=== PATIENT | male | born 1940 | race Asian ===

== ENCOUNTER → 2017-09-22 | Outpatient (CLI) | payer MEDICARE ==
[~2017-09-22] MED LIST: CARV6.2551 OR; DIGO0.1262 OR; MULTIV; SPIR25TA89 OR
[2017-09-22 11:49] LABS: Basophils # (auto) 0 uL; Basophils % (auto) 0.8 % (0.0-2.0); Eosinophils # (auto) 0.3 uL; Eosinophils % (auto) 5.2 % (0.0-7.0); Hematocrit 48.9 % (41.0-53.0); Hemoglobin 16.4 g/dL (13.5-17.5); Lymphocytes # (auto) 1.3 uL; Mean Corpuscular Hemoglobin 31.8 pg (28.0-32.0); Mean Corpuscular Hgb Conc. 33.6 g/dL (32.0-36.0); Mean Corpuscular Volume 94.9 fL (80.0-100.0); Monocytes # (auto) 0.4 uL; Monocytes % (auto) 7.5 % (0.0-12.0); Neutrophils # (auto) 3.8 uL; Neutrophils % (auto) 64.5 % (37.0-80.0); Nucleated Red Blood Cells % 0.1 %; Platelet Count (auto) 187 10^3/uL (140-450); Red Blood Cells 5.16 10^6/uL (4.5-5.90); Red Cell Distribution Width 13.3 % (11.8-14.3); White Blood Cell 5.8 10^3/uL (4.4-10.8)
[2017-09-22 12:00] LABS: Urine Bacteria NONE SEEN /hpf (None Seen); Urine Blood Negative /uL (Negative); Urine Mucus FEW (None Seen); Urine Specific Gravity 1.022 (1.001-1.035); Urine WBC <1 /hpf (0 - 3)
[2017-09-22 13:11] LABS: CRP High Sensitivity 0.11 mg/dL (< 0.3)
[2017-09-22 13:40] LABS: Free T4 (Free Thyroxine) 1.13 ng/dL (0.89-1.76); Prostate Specific Antigen 0.18 ng/mL (0.0-4.0); T3 Total 1.08 ng/mL (0.60-1.81)
[2017-09-22 13:41] LABS: Free T3 3.04 pg/mL (2.3-4.2)
== END | disposition home or self-care (01) ==
LOC: LAB 11:22
PROVIDERS: ATTEND Internal Medicine
DX: I25.10 Atherosclerotic heart disease of native coronary artery without angina pectoris (principal); E78.5 Hyperlipidemia, unspecified; I10 Essential (primary) hypertension; R79.89 Other specified abnormal findings of blood chemistry; E55.9 Vitamin D deficiency, unspecified; N40.0 Benign prostatic hyperplasia without lower urinary tract symptoms; R33.9 Retention of urine, unspecified; R39.15 Urgency of urination
CPT/HCPCS: 36415; 80061; 81001; 82306; 82607; 83036; 84153; 84403; 84439; 84443; 84480; 84481; 85025; 86141

== ENCOUNTER → 2018-04-19 | Outpatient (CLI) | payer MEDICARE ==
[~2018-04-19] MED LIST changes: +ASPI81TA27 PO; +CARV12.544 PO; +ENAL2.5T PO; +SPIR25TA8 OR; -SPIR25TA89 OR
== END | disposition home or self-care (01) ==
LOC: LAB 08:30
PROVIDERS: ATTEND Internal Medicine
DX: N39.41 Urge incontinence (principal)
CPT/HCPCS: 84153

== ENCOUNTER 2018-04-23 07:50 | Day surgery (SDC) | payer MEDICARE ==
[2018-04-20 12:34] LABS: Hematocrit 45.8 % (41.0-53.0); Hemoglobin 15.3 g/dL (13.5-17.5); Mean Corpuscular Hemoglobin 32.1 pg (28.0-32.0); Mean Corpuscular Hgb Conc. 33.3 g/dL (32.0-36.0); Mean Corpuscular Volume 96.4 fL (80.0-100.0); Platelet Count (auto) 170 10^3/uL (140-450); Red Blood Cells 4.75 10^6/uL (4.5-5.90); Red Cell Distribution Width 13.1 % (11.8-14.3); White Blood Cell 6.6 10^3/uL (4.4-10.8)
[2018-04-20 12:44] LABS: Band Neutrophils % (manual) 0; Basophils % (manual) 0 (0.0-2.0); Blast Cells 0; Metamyelocytes % 0; Myelocytes % 0; Promyelocytes % 0; Reactive Lymphocytes 0
[2018-04-20 12:56] LABS: INR 0.97 (0.9-1.15); Partial Thromboplastin Time 27.4 sec (23.78-33.04); Prothrombin Time 10.4 sec (9.27-12.13)
[2018-04-20 13:12] LABS: Eosinophils % (manual) 15 (0-7); Lymphocytes % (manual) 15 (10.0-50.0); Monocytes % (manual) 8 (0-12)
[~2018-04-23] VITALS: Ht 162.6 cm; Wt 63.5 kg
[~2018-04-23 07:50] MED LIST changes: -CARV6.2551 OR; -DIGO0.1262 OR; -MULTIV; -SPIR25TA8 OR
[2018-04-23] MEDS ORDERED: FLUMAZENIL 0.1 MG/ML INJ 10ML MDV IV ONE (08:13)
[2018-04-23] MEDS ORDERED: SODIUM CHLORIDE LOCK 10 ML ONE (08:13)
[2018-04-23] MEDS ORDERED: diphenhdrAMINE 50mg/ml (500mg/10ml VIAL) ONE (08:13)
[2018-04-23] MEDS ORDERED: NALOXONE HCL 0.4 MG/ML VIAL ONE (08:13)
[2018-04-23] MEDS: fentaNYL CITRATE 100 MCG/2 ML VL ONE ×3 (08:54→09:02)
[2018-04-23] MEDS: MIDAZOLAM HCL 5 MG/ML-1ML VIAL ONE ×3 (08:54→09:02)
[2018-04-23 09:51] VITALS: BP 134/74
== END 2018-04-23 10:09 | disposition home or self-care (01) ==
LOC: GI 07:50
PROVIDERS: ATTEND Internal Medicine Gastroenterology
DX: Z12.11 Encounter for screening for malignant neoplasm of colon (principal); D12.3 Benign neoplasm of transverse colon; D12.5 Benign neoplasm of sigmoid colon; D12.7 Benign neoplasm of rectosigmoid junction; K57.30 Diverticulosis of large intestine without perforation or abscess without bleeding; K64.8 Other hemorrhoids; K64.4 Residual hemorrhoidal skin tags; F32.9 Major depressive disorder, single episode, unspecified; Z79.82 Long term (current) use of aspirin; Z79.899 Other long term (current) drug therapy; Z98.890 Other specified postprocedural states; Z85.46 Personal history of malignant neoplasm of prostate
CPT/HCPCS: 36415; 45380; 45385; 85007; 85027; 85610; 85730; J1200; J2250; J3010; J7030; G0500

== ENCOUNTER → 2018-05-27 | Outpatient (CLI) | payer MEDICARE | END | disposition home or self-care (01) | LOC: XYW 09:35 | PROVIDERS: ATTEND Internal Medicine | DX: I07.1 Rheumatic tricuspid insufficiency (principal); I50.9 Heart failure, unspecified | CPT/HCPCS: 93306 ==

== ENCOUNTER → 2018-05-27 | Outpatient (CLI) | payer MEDICARE ==
[2018-05-27 09:22] LABS: Urine Bacteria NONE SEEN /hpf (None Seen); Urine Blood Negative /uL (Negative); Urine Mucus FEW (None Seen); Urine Specific Gravity 1.021 (1.001-1.035); Urine WBC <1 /hpf (0 - 3)
[2018-05-27 09:26] LABS: Chloride 104 mmol/L (98-107); Potassium 4.3 mmol/L (3.5-5.1); Sodium 137 mmol/L (136-145)
[2018-05-27 09:30] LABS: Basophils # (auto) 0 uL; Basophils % (auto) 0.6 % (0.0-2.0); Eosinophils # (auto) 0.5 uL; Eosinophils % (auto) 9.5 % (0.0-7.0); Hematocrit 46.4 % (41.0-53.0); Hemoglobin 15.9 g/dL (13.5-17.5); Mean Corpuscular Hemoglobin 32.6 pg (28.0-32.0); Mean Corpuscular Hgb Conc. 34.3 g/dL (32.0-36.0); Mean Corpuscular Volume 95.2 fL (80.0-100.0); Monocytes # (auto) 0.4 uL; Neutrophils # (auto) 2.8 uL; Neutrophils % (auto) 59.9 % (37.0-80.0); Nucleated Red Blood Cells % 0.2 %; Platelet Count (auto) 182 10^3/uL (140-450); Red Blood Cells 4.87 10^6/uL (4.5-5.90); Red Cell Distribution Width 13.1 % (11.8-14.3); White Blood Cell 4.8 10^3/uL (4.4-10.8)
[2018-05-27 09:36] LABS: Alanine Aminotransferase 31 U/L (16-61); Albumin 3.6 g/dL (3.4-5.0); Alkaline Phosphatase 60 U/L (45-117); Anion Gap 7 (5-15); Aspartate Aminotransferase 18 U/L (15-37); BUN/Creatinine Ratio 19.4; Bilirubin, Total 0.8 mg/dL (0.2-1.0); Blood Urea Nitrogen 20 mg/dL (7-18); CRP High Sensitivity < 0.02 mg/dL (< 0.3); Calcium 9.1 mg/dL (8.5-10.1); Carbon Dioxide 26 mmol/L (21-32); Cholesterol 174 mg/dL (< 200); GFR African American 90 mL/min; GFR Non-African American 74 mL/min; Glucose 128 mg/dL (74-106); HDL Cholesterol 68 mg/dL (40-59); LDL Cholesterol 103 mg/dL (< 100); Total Protein 7.3 g/dL (6.4-8.2); Triglycerides 64 mg/dL (< 150)
[2018-05-27 09:42] LABS: Free T4 (Free Thyroxine) 1.23 ng/dL (0.89-1.76)
[2018-05-27 09:44] LABS: T3 Total 1.02 ng/mL (0.60-1.81)
== END | disposition home or self-care (01) ==
LOC: LAB 08:42
PROVIDERS: ATTEND Internal Medicine
DX: E78.5 Hyperlipidemia, unspecified (principal); I42.9 Cardiomyopathy, unspecified; Z79.82 Long term (current) use of aspirin; Z79.899 Other long term (current) drug therapy
CPT/HCPCS: 36415; 80053; 80061; 81001; 82306; 82607; 83036; 84403; 84439; 84443; 84480; 85025; 86141

== ENCOUNTER → 2020-11-27 | Outpatient (CLI) | payer MEDICARE ==
[~2020-11-27] MED LIST changes: +ASPI-543 PO; -ASPI81TA27 PO; -ENAL2.5T PO; +ENAL2.5T7 PO
[2020-11-27 08:29] LABS: Basophils # (auto) 0 10 ^3/uL (0-0.2); Basophils % (auto) 0.8 % (0.0-2.0); Eosinophils # (auto) 0.3 10 ^3/uL (0-0.8); Eosinophils % (auto) 5.6 % (0.0-7.0); Hemoglobin 14.6 g/dL (13.5-17.5); Lymphocytes % (auto) 19.7 % (10.0-50.0); Mean Corpuscular Hemoglobin 32.3 pg (28.0-32.0); Mean Corpuscular Hgb Conc. 33.9 g/dL (32.0-36.0); Mean Corpuscular Volume 95.5 fL (80.0-100.0); Monocytes # (auto) 0.5 10 ^3/uL (0-1.3); Monocytes % (auto) 9.6 % (0.0-12.0); Neutrophils # (auto) 3.4 10 ^3/uL (1.6-8.6); Neutrophils % (auto) 64.3 % (37.0-80.0); Red Cell Distribution Width 13.4 % (11.8-14.3); White Blood Cell 5.2 10^3/uL (4.4-10.8)
[2020-11-27 08:56] LABS: Albumin 3.7 g/dL (3.4-5.0); Calcium 8.9 mg/dL (8.5-10.1); Potassium 4.1 mmol/L (3.5-5.1)
[2020-11-27 09:02] LABS: BUN/Creatinine Ratio 25.8; Bilirubin, Total 0.8 mg/dL (0.2-1.0); Total Protein 7.4 g/dL (6.4-8.2)
== END | disposition home or self-care (01) ==
LOC: LAB 08:03
PROVIDERS: ATTEND Internal Medicine
DX: I10 Essential (primary) hypertension (principal); E78.5 Hyperlipidemia, unspecified
CPT/HCPCS: 36415; 80053; 80061; 84403; 84443; 85025

== ENCOUNTER → 2020-11-28 | Outpatient (CLI) | payer MEDICARE | END | disposition home or self-care (01) | LOC: XYW 13:46 | PROVIDERS: ATTEND Internal Medicine | DX: I08.2 Rheumatic disorders of both aortic and tricuspid valves (principal); I48.91 Unspecified atrial fibrillation; I42.9 Cardiomyopathy, unspecified | CPT/HCPCS: 93306 ==

== ENCOUNTER → 2021-11-28 | Outpatient (CLI) | payer MEDICARE | END | disposition home or self-care (01) | LOC: XYW 09:38 | PROVIDERS: ATTEND Internal Medicine | DX: I08.8 Other rheumatic multiple valve diseases (principal); Q21.1 Atrial septal defect | CPT/HCPCS: 93306 ==

== ENCOUNTER → 2022-08-25 | Outpatient (CLI) | payer MEDICARE ==
[2022-08-25 09:20] LABS: Basophils # (auto) 0.1 10 ^3/uL (0-0.2); Basophils % (auto) 1.3 % (0.0-2.0); Eosinophils # (auto) 0.4 10 ^3/uL (0-0.8); Eosinophils % (auto) 7.1 % (0.0-7.0); Hematocrit 43.1 % (41.0-53.0); Hemoglobin 15.1 g/dL (13.5-17.5); Lymphocytes # (auto) 1.1 10 ^3/uL (0.4-5.4); Lymphocytes % (auto) 22.1 % (10.0-50.0); Mean Corpuscular Hemoglobin 32.7 pg (28.0-32.0); Mean Corpuscular Hgb Conc. 35.1 g/dL (32.0-36.0); Mean Corpuscular Volume 93.2 fL (80.0-100.0); Monocytes # (auto) 0.4 10 ^3/uL (0-1.3); Neutrophils # (auto) 3.2 10 ^3/uL (1.6-8.6); Neutrophils % (auto) 61.5 % (37.0-80.0); Nucleated Red Blood Cells % 0.4 %; Red Blood Cells 4.62 10^6/uL (4.5-5.90); Red Cell Distribution Width 12.6 % (11.8-14.3); White Blood Cell 5.1 10^3/uL (4.4-10.8)
[2022-08-25 09:30] LABS: Urine Bacteria NONE SEEN /hpf (None Seen); Urine Blood Negative /uL (Negative); Urine Mucus FEW (None Seen); Urine Specific Gravity 1.023 (1.001-1.035); Urine WBC <1 /hpf (0 - 3)
[2022-08-25 09:52] LABS: Albumin 3.4 g/dL (3.4-5.0); Calcium 9.5 mg/dL (8.5-10.1); Potassium 4.5 mmol/L (3.5-5.1)
[2022-08-25 10:01] LABS: BUN/Creatinine Ratio 31.3 (10.0-20.0); Bilirubin, Total 0.8 mg/dL (0.2-1.0)
[2022-08-25 10:36] LABS: Free T4 (Free Thyroxine) 1.05 ng/dL (0.89-1.76)
[2022-08-25 10:37] LABS: Prostate Specific Antigen 0.35 ng/mL (0.0-4.0)
== END | disposition home or self-care (01) ==
LOC: LAB 08:52
PROVIDERS: ATTEND Internal Medicine
DX: I12.9 Hypertensive chronic kidney disease with stage 1 through stage 4 chronic kidney disease, or unspecified chronic kidney disease (principal); Z29.9 Encounter for prophylactic measures, unspecified; Z79.899 Other long term (current) drug therapy; Z85.46 Personal history of malignant neoplasm of prostate
CPT/HCPCS: 36415; 80053; 80061; 81001; 83036; 84153; 84439; 84443; 85025

== ENCOUNTER → 2022-10-06 | Outpatient (CLI) | payer MEDICARE ==
[2022-10-06 14:16] LABS: Basophils # (auto) 0 10 ^3/uL (0-0.2); Basophils % (auto) 0.6 % (0.0-2.0); Eosinophils # (auto) 0.5 10 ^3/uL (0-0.8); Eosinophils % (auto) 7.5 % (0.0-7.0); Hematocrit 41.3 % (41.0-53.0); Hemoglobin 14.1 g/dL (13.5-17.5); Lymphocytes # (auto) 1.5 10 ^3/uL (0.4-5.4); Lymphocytes % (auto) 23.6 % (10.0-50.0); Mean Corpuscular Hemoglobin 32.6 pg (28.0-32.0); Mean Corpuscular Hgb Conc. 34.3 g/dL (32.0-36.0); Mean Corpuscular Volume 95.2 fL (80.0-100.0); Monocytes # (auto) 0.6 10 ^3/uL (0-1.3); Monocytes % (auto) 8.8 % (0.0-12.0); Neutrophils # (auto) 3.8 10 ^3/uL (1.6-8.6); Neutrophils % (auto) 59.5 % (37.0-80.0); Red Blood Cells 4.33 10^6/uL (4.5-5.90); Red Cell Distribution Width 12.9 % (11.8-14.3); White Blood Cell 6.4 10^3/uL (4.4-10.8)
== END | disposition home or self-care (01) ==
LOC: LAB 13:59
PROVIDERS: ATTEND Internal Medicine
DX: Z01.812 Encounter for preprocedural laboratory examination (principal); I10 Essential (primary) hypertension
CPT/HCPCS: 36415; 85025

== ENCOUNTER → 2023-01-28 | Outpatient (CLI) | payer MEDICARE ==
[~2023-01-28] VITALS: Ht 160 cm; Wt 59.0 kg
[~2023-01-28] MED LIST changes: +ADENOSINE 50 MG in GIVE UN-DILUTED 0 ML IV ONE; +ENAL1TAB42 PO; -ENAL2.5T7 PO
== END | disposition home or self-care (01) ==
LOC: XYW 07:12
PROVIDERS: ATTEND Student in an Organized Health Care Education/Training Program
DX: Z01.810 Encounter for preprocedural cardiovascular examination (principal); I48.0 Paroxysmal atrial fibrillation; I42.8 Other cardiomyopathies; Q21.10 Atrial septal defect, unspecified
CPT/HCPCS: 78452; 93017; A9500; J0153

== ENCOUNTER 2023-04-13 06:12 | Day surgery (SDC) | payer MEDICAID, MEDICARE ==
[2023-04-08 11:18] LABS: Urine WBC None Seen /hpf (0 - 3)
[2023-04-08 11:29] LABS: Basophils # (auto) 0 10 ^3/uL (0-0.2); Basophils % (auto) 0.8 % (0.0-2.0); Eosinophils # (auto) 0.3 10 ^3/uL (0-0.8); Eosinophils % (auto) 5.3 % (0.0-7.0); Hematocrit 42.3 % (41.0-53.0); Hemoglobin 14.1 g/dL (13.5-17.5); Lymphocytes # (auto) 1.1 10 ^3/uL (0.4-5.4); Lymphocytes % (auto) 17.7 % (10.0-50.0); Mean Corpuscular Hemoglobin 31.8 pg (28.0-32.0); Mean Corpuscular Hgb Conc. 33.2 g/dL (32.0-36.0); Mean Corpuscular Volume 95.8 fL (80.0-100.0); Monocytes # (auto) 0.6 10 ^3/uL (0-1.3); Monocytes % (auto) 9.5 % (0.0-12.0); Neutrophils # (auto) 4.2 10 ^3/uL (1.6-8.6); Neutrophils % (auto) 66.7 % (37.0-80.0); Red Blood Cells 4.42 10^6/uL (4.5-5.90); Red Cell Distribution Width 13.9 % (11.8-14.3); White Blood Cell 6.3 10^3/uL (4.4-10.8)
[2023-04-08 11:37] LABS: Urine Bacteria NONE SEEN /hpf (None Seen); Urine Blood Negative /uL (Negative); Urine Clarity Clear (Clear); Urine Color Yellow (Yellow); Urine Protein, UAD Negative (Negative); Urine Specific Gravity 1.022 (1.001-1.035); Urine Urobilinogen Normal (Negative); Urine pH 6.5 (5.0-8.0)
[2023-04-08 11:46] LABS: INR 1.04 (0.9-1.15); Partial Thromboplastin Time 28.3 SEC (24.5-34.5); Prothrombin Time 10.9 sec (9.3-11.8)
[2023-04-08 11:53] LABS: Alanine Aminotransferase 26 U/L (7-40); Albumin 4.3 g/dL (3.2-4.8); Alkaline Phosphatase 53 U/L (46-116); Anion Gap 5 (5-15); Aspartate Aminotransferase 20 U/L (13-40); BUN/Creatinine Ratio 24.4 (10.0-20.0); Bilirubin, Total 0.7 mg/dL (0.2-1.0); Blood Urea Nitrogen 21 mg/dL (9-23); Carbon Dioxide 30 mmol/L (20-30); Chloride 104 mmol/L (98-107); Glucose 102 mg/dL (74-106); Potassium 4.2 mmol/L (3.5-5.1); Sodium 139 mmol/L (136-145); Total Protein 6.9 g/dL (5.7-8.2)
[2023-04-08 12:25] LABS: Calcium 9.5 mg/dL (8.7-10.4)
[~2023-04-13] VITALS: Ht 160 cm; Wt 59.0 kg
[~2023-04-13 06:12] MED LIST changes: -ADENOSINE 50 MG in GIVE UN-DILUTED 0 ML IV ONE; -ASPI-543 PO; +SPIR25TA8 PO
[2023-04-13] MEDS ORDERED: DexAMETHasone SOD PHOS 10MG/1ML VIAL INJ IV ONE (06:13)
[2023-04-13] MEDS ORDERED: ceFAZolin 2 GM/D5W100ml 100 ML IV ONE (06:37)
[2023-04-13] MEDS ORDERED: LIDOCAINE W/ EPINEPHRINE 1% 20ML VIAL ONE (06:41)
[2023-04-13] MEDS ORDERED: BUPIVACAINE 0.5% P/F INJ 10 ML VIAL ONE (06:41)
[2023-04-13] MEDS ORDERED: ROCURONIUM 10MG/ML 10ML VIAL IV ONE (06:53)
[2023-04-13] MEDS ORDERED: SUCCINYLCHOLINE CHLORIDE 20 MG/ML 10ML VIAL IV ONE (06:53)
[2023-04-13] MEDS ORDERED: MEPERIDINE HCL (25 MG/ML) 1ML VIAL ONE (07:00)
[2023-04-13] MEDS ORDERED: fentaNYL CITRATE 100 MCG/2 ML VL ONE (07:01)
[2023-04-13] MEDS ORDERED: ONDANSETRON HCL 4 MG/2 ML VIAL ONE (07:01)
[2023-04-13] MEDS ORDERED: PROPOFOL 10 MG/ML 20 ML IV ONE (07:01)
[2023-04-13] MEDS ORDERED: MIDAZOLAM HCL 2MG/2ML 2ml VIAL (1mg/ml) ONE (07:01)
[2023-04-13] MEDS ORDERED: ACE3T PO (08:05)
[2023-04-13 08:09] VITALS: PULSE 59; RESP 11; O2SAT 100
[2023-04-13] MEDS ORDERED: MORPHINE SULFATE INJ 2 MG/ml SYRG IV PRN (08:15)
[2023-04-13] MEDS ORDERED: HYDROmorphone HCL 2 MG/ML VL/or syr IV PRN ×2 (08:15)
[2023-04-13] MEDS ORDERED: METOCLOPRAMIDE HCL 5MG/ml INJ 2ml VIAL IV PRN (08:15)
[2023-04-13 09:54] VITALS: BP 135/78; PULSE 61; RESP 15; O2SAT 98
== END 2023-04-13 10:10 | disposition home or self-care (01) ==
LOC: SUR 06:12
PROVIDERS: ATTEND Surgery
DX: K40.91 Unilateral inguinal hernia, without obstruction or gangrene, recurrent (principal)
CPT/HCPCS: 36415; 49520; 80053; 81001; 85025; 85610; 85730; 86850; 86900; 86901; 88302; C1781; J0330; J1100; J2175; J2250; J2405; J2704; J3010; J3490

== ENCOUNTER 2023-07-17 10:34 | Emergency (ER) | payer MEDICARE ==
[~2023-07-17] VITALS: Ht 160 cm; Wt 58.3 kg
[2023-07-17 11:10] LABS: Basophils # (auto) 0 10 ^3/uL (0-0.2); Basophils % (auto) 0.5 % (0.0-2.0); Eosinophils # (auto) 0.1 10 ^3/uL (0-0.8); Hematocrit 43.4 % (41.0-53.0); Hemoglobin 14.3 g/dL (13.5-17.5); Lymphocytes # (auto) 0.7 10 ^3/uL (0.4-5.4); Lymphocytes % (auto) 10.7 % (10.0-50.0); Mean Corpuscular Hemoglobin 31.8 pg (28.0-32.0); Mean Corpuscular Hgb Conc. 33.1 g/dL (32.0-36.0); Mean Corpuscular Volume 96.1 fL (80.0-100.0); Monocytes # (auto) 0.3 10 ^3/uL (0-1.3); Monocytes % (auto) 5.4 % (0.0-12.0); Neutrophils # (auto) 5.2 10 ^3/uL (1.6-8.6); Neutrophils % (auto) 82.4 % (37.0-80.0); Red Blood Cells 4.51 10^6/uL (4.5-5.90); Red Cell Distribution Width 13.5 % (11.8-14.3); White Blood Cell 6.3 10^3/uL (4.4-10.8)
[2023-07-17 11:23] VITALS: PULSE 60; RESP 17; O2SAT 100
[2023-07-17 11:26] LABS: Alanine Aminotransferase 26 U/L (7-40); Albumin 4.1 g/dL (3.2-4.8); Alkaline Phosphatase 52 U/L (46-116); Anion Gap 5 (5-15); Aspartate Aminotransferase 24 U/L (13-40); BUN/Creatinine Ratio 14.1 (10.0-20.0); Blood Urea Nitrogen 11 mg/dL (9-23); Calcium 9.5 mg/dL (8.7-10.4); Carbon Dioxide 24 mmol/L (20-30); Chloride 105 mmol/L (98-107); Glucose 165 mg/dL (74-106); Magnesium 2.3 mg/dL (1.6-2.6); Potassium 4.1 mmol/L (3.5-5.1); Sodium 134 mmol/L (136-145)
[2023-07-17 11:27] LABS: Bilirubin, Total 0.8 mg/dL (0.2-1.0)
[2023-07-17 12:28] LABS: COVID19 ANTIGEN SOFIA FIA NEGATIVE (NEGATIVE)
[2023-07-17] MEDS ORDERED: ALBU108A5 IN (16:01)
[2023-07-17] MEDS ORDERED: PRED20TA2 PO (16:01)
[2023-07-17] MEDS: DexAMETHasone SOD PHOS 10MG/1ML VIAL INJ IV ONE (16:20)
[2023-07-17] MEDS: ALBUTEROL SULF 2.5 MG/0.5ML(0.5%) NEB SOLN HHN ONE (16:33)
[2023-07-17] MEDS: IPRATROPIUM BROM 0.5 MG/2.5ML INH SOL HHN ONE (16:33)
[2023-07-17 17:12] VITALS: BP 128/69; PULSE 74; RESP 17; O2SAT 99
== END 2023-07-17 17:19 | disposition home or self-care (01) ==
LOC: ER 10:34
DX: R06.00 Dyspnea, unspecified (principal); I11.0 Hypertensive heart disease with heart failure; I50.9 Heart failure, unspecified; I48.91 Unspecified atrial fibrillation; Z85.46 Personal history of malignant neoplasm of prostate; Z98.890 Other specified postprocedural states; Z20.822 Contact with and (suspected) exposure to COVID-19
CPT/HCPCS: 36415; 71045; 71275; 80053; 83605; 83735; 83880; 84484; 85025; 85379; 87040; 87426; 94640; 96374; 99285; J1100; J7644; Q9967

== ENCOUNTER → 2023-11-09 | Outpatient (CLI) | payer MEDICARE ==
[~2023-11-09] MED LIST changes: +ALBU108A5 IN; +PRED20TA2 PO
== END | disposition home or self-care (01) ==
LOC: XYW 10:52
PROVIDERS: ATTEND Internal Medicine
DX: I08.1 Rheumatic disorders of both mitral and tricuspid valves (principal); I48.0 Paroxysmal atrial fibrillation
CPT/HCPCS: 93306

== ENCOUNTER → 2024-05-24 | Outpatient (CLI) | payer MEDICARE ==
[~2024-05-24] VITALS: Ht 160 cm; Wt 57.6 kg
[~2024-05-24] MED LIST changes: +REGADENOSON 0.4 MG/5 ML SYRG IV ONE
--- NOTE | 2024-05-25 07:51 | DVHSR ---
APPROVED REPORT Exam: Nuclear Stress Test Indication: Cardiac clearance BMI: 0 Medical History Medical History: EF 50%, A-fiB, HTN Stress Test Details Stress Test: Pharmacologic stress testing performed using 0.4 mg of regadenoson per 5 mL given IV ov er 10 seconds. HR Resting HR: 55 bpmMax Heart Rate (APMHR): 137 bpm Max HR Achieved: 74 bpmTarget HR (85% APMHR): 116 bpm % of APMHR: 54 Recovery HR: 64 bpm BP Resting BP: 122/65 mmHg Recovery BP: 117/53 mmHg ECG Resting ECG: Sinus Bradycardia Clinical Reason for Termination: Completed protocol Stress ECG Conclusion Review of the myocardial perfusion images demonstrated a moderate-sized area of moderate intensity ra diotracer uptake in the inferior wall that appears to be more intense in the resting images compared to stress images. This likely represents diaphragmatic attenuation artifact. Otherwise, there is ho mogeneous radiotracer uptake throughout the rest of the left ventricular myocardium. Left ventricula r volumes are normal. Ejection fraction is normal and is estimated at 59%. There is no significant transient ischemic dilatation. No gated images are available to assess for wall motion abnormalities . Impression: 1. Fixed defect in the inferior wall that likely represents diaphragmatic attenuation artifact. 2. Normal left ventricular systolic function. NM EXAM: Myocardial Perfusion REST/STRESS Imaging Protocol: Rest Tc-99m/Stress Tc-99m 1 day Resting Data Rest SPECT myocardial perfusion imaging was performed in supine position 60 minutes following the int ravenous injection of 12.9 mCi of Tc-99m Sestamibi. Time of rest injection: 0950 Time of rest imagin Administration Route: IV Administration Site: Left AC Pharmacologic Stress Pharmacologic stress test was performed by injecting Regadenoson 0.4 mg IV push followed by the intra venous injection of 33 mCi of Tc-99m Sestamibi. Time of stress injection: 1101 Time of stress imagin Administration Route: IV Administration Site: Left AC Gated Stress SPECT was performed 60 minutes after stress injection. The images were gated to evaluate regional wall motion and calculate left ventricular ejection fracti on. Stress only was performed in the Supine position. Nuclear Conclusion ECG Findings: negative for ischemia Clinical Findings: negative for ischemia Nuclear Findings: negative for ischemia Exercise Capacity: not assessed Left Ventricular Function: normal Risk Study: low Review of the myocardial perfusion images demonstrated a moderate-sized area of moderate intensity ra diotracer uptake in the inferior wall that appears to be more intense in the resting images compared to stress images. This likely represents diaphragmatic attenuation artifact. Otherwise, there is ho mogeneous radiotracer uptake throughout the rest of the left ventricular myocardium. Left ventricula r volumes are normal. Ejection fraction is normal and is estimated at 59%. There is no significant transient ischemic dilatation. No gated images are available to assess for wall motion abnormalities . Impression: 1. Fixed defect in the inferior wall that likely represents diaphragmatic attenuation artifact. 2. Normal left ventricular systolic function.
== END | disposition home or self-care (01) ==
LOC: XYW 09:46
PROVIDERS: ATTEND Internal Medicine
DX: Z01.810 Encounter for preprocedural cardiovascular examination (principal); I10 Essential (primary) hypertension; I48.19 Other persistent atrial fibrillation; I42.9 Cardiomyopathy, unspecified; I48.91 Unspecified atrial fibrillation; D17.79 Benign lipomatous neoplasm of other sites; R06.02 Shortness of breath
CPT/HCPCS: 78452; 93017; A9500; J2785

== ENCOUNTER 2024-08-10 07:40 | Day surgery (SDC) | payer MEDICARE ==
[2024-08-04 11:46] LABS: Urine Bacteria None Seen /hpf (None Seen)
[2024-08-04 12:07] LABS: Basophils # (auto) 0 10 ^3/uL (0-0.2); Basophils % (auto) 0.5 % (0.0-2.0); Eosinophils # (auto) 0.3 10 ^3/uL (0-0.8); Eosinophils % (auto) 5.3 % (0.0-7.0); Hematocrit 40.8 % (41.0-53.0); Hemoglobin 13.9 g/dL (13.5-17.5); Lymphocytes # (auto) 1.2 10 ^3/uL (0.4-5.4); Lymphocytes % (auto) 21.6 % (10.0-50.0); Mean Corpuscular Hemoglobin 32.4 pg (28.0-32.0); Mean Corpuscular Volume 95.3 fL (80.0-100.0); Monocytes # (auto) 0.5 10 ^3/uL (0-1.3); Monocytes % (auto) 10.1 % (0.0-12.0); Neutrophils # (auto) 3.4 10 ^3/uL (1.6-8.6); Neutrophils % (auto) 62.5 % (37.0-80.0); Platelet Count (auto) 152 10^3/uL (140-450); Red Blood Cells 4.28 10^6/uL (4.5-5.90); White Blood Cell 5.4 10^3/uL (4.4-10.8)
[2024-08-04 12:12] LABS: INR 0.99 (0.9-1.15); Partial Thromboplastin Time 26.8 SEC (24.5-34.5); Prothrombin Time 10.5 sec (9.3-11.8)
[2024-08-04 12:14] LABS: Urine Blood Negative /uL (Negative); Urine Clarity Clear (Clear); Urine Color Light-Yellow (Yellow); Urine Protein, UAD Negative (Negative); Urine Squamous Epithelial Cell None Seen /hpf (<5); Urine Urobilinogen Normal (Negative); Urine WBC < 1 /HPF (0-3)
[2024-08-04 12:55] LABS: Alanine Aminotransferase 27 U/L (7-40); Albumin 4.2 g/dL (3.2-4.8); Alkaline Phosphatase 54 U/L (46-116); Anion Gap 6 (5-15); Aspartate Aminotransferase 23 U/L (13-40); BUN/Creatinine Ratio 19.1 (10.0-20.0); Bilirubin, Total 0.6 mg/dL (0.2-1.0); Blood Urea Nitrogen 21 mg/dL (9-23); Calcium 9.9 mg/dL (8.7-10.4); Carbon Dioxide 28 mmol/L (20-31); Chloride 103 mmol/L (98-107); Potassium 4.2 mmol/L (3.5-5.1); Sodium 137 mmol/L (136-145); Total Protein 6.9 g/dL (5.7-8.2)
[2024-08-04 12:56] LABS: Glucose 117 mg/dL (74-106)
[~2024-08-10] VITALS: Ht 160 cm; Wt 57.2 kg
[~2024-08-10 07:40] MED LIST changes: -ALBU108A5 IN; -PRED20TA2 PO; -REGADENOSON 0.4 MG/5 ML SYRG IV ONE
[2024-08-10] MEDS ORDERED: ceFAZolin 2 GM/D5W100ml 100 ML IV ONE (08:41)
[2024-08-10] MEDS ORDERED: PROPOFOL 10 MG/ML 20 ML IV ONE (09:48)
[2024-08-10] MEDS ORDERED: fentaNYL CITRATE 100 MCG/2 ML VL ONE (09:48)
[2024-08-10] MEDS ORDERED: ePHEDrine SULFATE 50 MG/ML AMP ONE (10:09)
[2024-08-10] MEDS ORDERED: DexAMETHasone SOD PHOS 10MG/1ML VIAL INJ ONE (10:14)
[2024-08-10] MEDS ORDERED: ONDANSETRON HCL 4 MG/2 ML VIAL ONE (10:14)
[2024-08-10] MEDS: LIDOCAINE W/ EPINEPHRINE 1% 20ML VIAL ONE (10:18)
[2024-08-10] MEDS: BUPIVACAINE HCL 0.25% P/F 10 ML VIAL ONE (10:18)
[2024-08-10 10:46] VITALS: TEMP 97.1; O2SAT 100
[2024-08-10] MEDS ORDERED: ACETAMINOPHEN IV 1000 MG/100ML (10MG/ML) IV PRN (11:00)
[2024-08-10] MEDS ORDERED: HYDROmorphone HCL 2 MG/ML VL/or syr IV PRN (11:00)
[2024-08-10] MEDS ORDERED: MEPERIDINE HCL (25 MG/ML) 1ML VIAL IV PRN (11:00)
[2024-08-10] MEDS ORDERED: ONDANSETRON HCL 4 MG/2 ML VIAL IV ONE (11:00)
[2024-08-10 11:30] VITALS: BP 132/61; PULSE 79; RESP 12; O2SAT 96
--- NOTE | 2024-08-10 12:31 | DVHOP2 ---
Operative Report - 2 Report Details Date: 08/10/24 Preop Diagnosis: right chest wall lipoma Postop Diagnosis: right chest wall lipoma Surgeon: Dr. Yash Moran Wire Strander: Mindy Marcelo DNP Anesthesiologist: Dr. Vazquez Anesthesia: General Consent: The patient was informed of the risks and benefits of the procedure. These include but are not limited to complications of anesthesia, postoperative infection, incomplete relief of symptoms, recurrence of symptoms, damage to blood vessels, nerves and tendons, deep venous thrombosis, pulmonary embolism a nd possible need for repeat surgery in the future. Name of Procedure Performed excision of right chest wall lipoma Procedure Details Procedure Details: under the supervision of Dr. Moran and under adequate anesthesia the patient was positioned in a supine position. The right chest wall was prepped and draped in a sterile fashion. The area was than infiltrated with 1:1 1% lidocaine with epi and 0/25% Marcaine. A horizontal incision was made and the lipoma was excised. Lipoma was sent to pathology. The wound was than irrigated with normal saline and approximation of skin was accomplished with 2-0 Monocryl. Dermabond and steri strip were placed with a pressure dressing over. All sponge, needle and blade counts were correct. Patient was transferred to recovery without incident. Specimen: lipoma Condition Good Disposition Home MINDY MARCELO DNP Aug 10, 2024 12:31
== END 2024-08-10 11:45 | disposition home or self-care (01) ==
LOC: SUR 07:40
PROVIDERS: ATTEND Surgery
DX: D17.1 Benign lipomatous neoplasm of skin and subcutaneous tissue of trunk (principal); Z79.899 Other long term (current) drug therapy; Z98.890 Other specified postprocedural states; Z87.891 Personal history of nicotine dependence
CPT/HCPCS: 21552; 36415; 80053; 81001; 85025; 85610; 85730; 88305; J1100; J2405; J2704; J3010; J3490